=== PATIENT | female | born 1950 | race Caucasian/White ===

== ENCOUNTER 2017-08-21 02:24 | Inpatient (IN) | payer OTHER ==
[~2017-08-21] VITALS: Ht 170.2 cm; Wt 64.9 kg
[~2017-08-21 02:24] MED LIST: MAGNESIUM400 M1 PO; PREMARIN0.3 M1 PO; PROVERA2.5 MG PO; VALSARTAN-HCTZ1 EAC1 PO; VALTREX500 M1 PO; VITAMIN B-121000 MC3 PO; VITAMIN D1000 UNIT PO
[2017-08-21] MEDS ORDERED: VALSARTAN160 M1 PO (07:01)
--- NOTE | 2017-08-21 08:29 | Admission Core Measures ---
Acute Coronary Syndrome (CM) ACS Core Measures Acute Coronary Syndrome Diagnosis No Congestive Heart Failure (NEW) CHF Core Measures Congestive Heart Failure Diagnosis No Cerebrovascular Accident (NEW) CVA Core Measures CVA/TIA Diagnosis No Venous Thromboembolism VTE Core Otto (View Protocol) VTE Risk Factors Surgery No Mechanical VTE Prophylaxis d/t N/A MechProphylax Ordered No VTE Pharm Prophylaxis d/t NA PharmProphylax ordered Problem List As ranked by this Provider includes Assessment & Plan 1. Primary osteoarthritis of right hip HOME MEDS Home Med List Cholecalciferol (Vitamin D3) (Vitamin D) 1,000 UNIT TABLET 1 TAB PO DAILY SUPPLEMENT (Reported) Cyanocobalamin (Vitamin B-12) 1,000 MCG TABLET 1 TAB PO DAILY SUPPLEMENT ( Reported) Estrogens, Conjugated (Premarin) 0.3 MG TABLET 1 TAB PO DAILY HRT (Reported) Magnesium Oxide (Magnesium) (Unknown Strength) CAPSULE (Unknown Dose) PO DAILY SUPPLEMENT (Reported) Medroxyprogesterone Acetate (Provera) 2.5 MG TABLET 1 TAB PO DAILY HRT ( Reported) Valacyclovir Hydrochloride (Valtrex) 500 MG TABLET 1 TAB PO DAILY ANTIVIRAL ( Reported) Valsartan 160 MG TABLET 1 TAB PO DAILY bp (Reported) Valsartan/Hydrochlorothiazide (Valsartan-Hctz 160-12.5 MG Tab) 160 MG-12.5 MG TABLET 1 TAB PO DAILY BP (Reported)
--- NOTE | 2017-08-21 08:43 | Surg Short-stay <48hrs Dis Sum ---
Visit Information Visit Dates Admission Date: 08/21/17 Surgical Short Stay DC Summary Admission Diagnosis: right hip primary osteoarthritis Final Diagnosis: Same, s/p right total hip arthroplasty Procedure(s): right total hip arthroplasty Summary/Significant Findings: Patient was admitted to the hospital for an elective total joint replacement. Procedure was tolerated well and patient was transferred to a general surgical floor. Diet was advanced and tolerated. Physical therapy performed evaluation and treatment. At time of hospital discharge, vital signs were stable, neurovascular status was intact, and pain was controlled with the use of oral pain medications. Condition at Discharge: stable Discharge Disposition: home health services Discharge instructions provided to patient/family: Yes Post discharge follow-up plan: Follow up with Dr. Earl in 6 weeks from date of surgery. Please call his office to schedule/confirm this appointment.
[2017-08-21] MEDS ORDERED: DILAUDID2 M1 PO (11:06)
[2017-08-21] MEDS ORDERED: ASPIRIN EC325 M2 PO (11:06)
[2017-08-21] MEDS ORDERED: MIRALAX17 G1 PO (11:06)
[2017-08-21] MEDS ORDERED: PROTONIX20 M1 PO (11:06)
[2017-08-21] MEDS ORDERED: MS CONTIN15 M3 PO (11:06)
[2017-08-21] MEDS ORDERED: COLACE100 M1 PO (11:06)
--- NOTE | 2017-08-21 11:11 | Patient Discharge Instructions ---
Discharge Instructions General Discharge Information You were seen/treated for: right hip pain, osteoarthritis You had these procedures: right total hip arthroplasty Watch for these problems: Increasing pain despite the use of pain medication Increasing redness, warmth or swelling Drainage of any type from incision Inability to bear weight on operative leg Persistent nausea and vomiting Fever greater than 101.5 degrees Other wound care: Please keep wound clean and dry. No ointments or lotions of any type on or near incision. Your dressing will be changed by your nurse on the second day after your surgery. Daily dry dressing changes are recommended each day thereafter. Do not soak your wound- no tub baths/swimming. You may shower 48hr after surgery. Special Instructions: Aspirin: You are taking this medication to help prevent blood clot formation. Please take with food to protect your stomach lining. Please take as directed. Constipation: Pain medication can cause constipation. It is recommended that you take Colace and Miralax each day. Discontinue this medication if you develop loose stool or diarrhea. If you wish to continue this medication, it is available over the counter. If you are unable to move your bowels or unable to pass gas and are developing bloating, nausea, or vomiting as a result, please contact your doctor. Protonix (pantoprazole): Take this medication while on high dose aspirin to protect your stomach lining. Diet Recommended Diet: Regular Activity Activity Limited to: Weight bear as tolerated Additional ACTIVITY Info: use assistive devices as needed Acute Coronary Syndrome Inclusion Criteria At DC or during hospital stay patient has or had the following: ACS DIAGNOSIS No Discharge Core Measures Meds if any: Prescribed or Continued at Discharge Meds if any: NOT Prescribed or Continued at Discharge Congestive Heart Failure Inclusion Criteria At DC or during hospital stay patient has or had the following: CHF DIAGNOSIS No Discharge Core Measures Meds if any: Prescribed or Continued at Discharge Meds if any: NOT Prescribed or Continued at Discharge Cerebrovascular accident Inclusion Criteria At DC or during hospital stay patient has or had the following: CVA/TIA Diagnosis No Discharge Core Measures Meds if any: Prescribed or Continued at Discharge Meds if any: NOT Prescribed or Continued at Discharge Venous thromboembolism Inclusion Criteria VTE Diagnosis No VTE Type NONE VTE Confirmed by (Test) NONE Discharge Core Measures - Per Current guidelines, there needs to be overlap - treatment for the first 5 days of Warfarin therapy. - If discharged on Warfarin prior to 5 days of - overlap therapy, the patient will need to be - assessed for post discharge needs including - *Post discharge parental anticoagulation - *Warfarin and/or parental anticoagulation education - *Follow up date to check INR post discharge At least 5 days overlap therapy as Inpatient No Meds if any: Prescribed or Continued at Discharge Note: Overlap Therapy is Warfarin and Anticoagulant Meds if any: NOT Prescribed or Continued at Discharge
--- NOTE | 2017-08-21 12:22 | RADIOLOGY REPORT ---
EXAMINATION: XR HIP, RIGHT CLINICAL INFORMATION: Total hip replacement COMPARISON: None TECHNIQUE: Two views of the right hip. FINDINGS: The femoral head prosthesis is well centered within the acetabular cup. There is approximately 35 degrees of lateral version and approximately 25 degrees anteversion of the acetabular cup. The femoral stem is well-positioned in the medullary cavity of the proximal femoral diaphysis. No acute periprosthetic fracture. Postoperative soft tissue emphysema around the hip. The right pelvic bones are intact. IMPRESSION: Status post right total hip arthroplasty without complication. No acute periprosthetic fracture.
[2017-08-21 14:04] VITALS: BP 106/60
--- NOTE | 2017-08-21 14:58 | Operative Report ---
Operative/Inv Procedure Report Surgery Date: 08/21/17 Name of Procedure: Right total hip replacement Pre-Operative Diagnosis: Primary right hip DJD Post-Operative Diagnosis: Same Estimated Blood Loss: 250 Surgeon/Farm Technician: Mady TERRELL,Narendra Eller Anesthesia: block Operative/Procedure Note Note: Description of Procedure: The patient was taken to the operating room and positively identified. After induction of spinal anesthesia and administration of appropriate pre-operative antibiotics, the patient was positioned supine on the operating room table and all bony prominences were well padded. After performing a surgical timeout, the right lower extremity was prepped and draped in the usual sterile fashion. A direct anterior approach was made to the right hip. The incision was carried sharply through superficial soft tissues to the level of the fascia. Meticulous hemostasis was maintained with Bovie electocautery. The fascia over the tensor fascia any muscle was opened sharply and the interval between the TFL and the sartorius was entered bluntly taking care to stay lateral to the lateral femoral cutaneous nerve. Retractors were placed around the femoral neck and the pericapsular fat was identified. The ascending branches of the lateral femoral circumflex vessels were identified and carefully coagulated. The pericapsular fat and anterior capsule were then resected. A napkin ring osteotomy was performed and the femoral head was removed without difficulty. Attention was then turned to the acetabulum. After appropriate placement of retractors, the acetabulum was exposed. Soft tissue was cleaned from the acetabular margin and notch. Overhanging osteophytes were removed and the teardrop was exposed. The acetabulum was then sequentially reamed to accept a 56 mm Haider Tritanium hemispherical solid shell. This was impacted into place in the appropriate position and fitted with a 36 mm Trident X3 zero degree polyethylene insert. Attention was then turned to the femur. After performing the appropriate ligament releases, the proximal femur was exposed. It was then sequentially broached to accept a size #4 [place] Accolade 2 stem. This was trialed for leg length and stability. The trial component was removed and the final component was impacted into place. The trunnion was carefully cleaned and fit with a 36 mm, -2.5 Biolox delta ceramic femoral head. The hip was reduced and put through a full range of motion and found to be stable. The articular space was then irrigated with sterile saline. The periarticular soft tissues were infilitrated with Marcaine. The fascial layer was closed with interrupted #1 vicryl suture and the skin was re-approximated with interrupted 2 -0 vicryl. The skin was closed with a running 3-0 V-Lock suture. Steri-strips and a sterile dressing were applied. The patient was awakened and taken to the recovery room in satisfactory condition.
--- NOTE | 2017-08-21 15:00 | PN- Orthopedic ---
Subjective Subjective: Post-op Check Pt sitting in chair, tolerating reg diet. Denies N/V. Pt denies pain. Ambulated with PT and was cleared for DC to home. Voided pt would like to go home this afternoon Objective Vital Signs and I&Os Vital Signs Date Time Temp Pulse Resp B/P B/P Pulse O2 O2 Flow FiO2 Mean Ox Delivery Rate 08/21 1404 97.7 63 16 106/60 97 Room Air Intake & Output 08/21 1600 08/21 0800 08/21 0000 08/20 1600 08/20 0800 08/20 0000 Intake Total 240 Output Total 300 Balance -60 Intake, Oral 240 Output, Urine 300 Patient 143 lb Weight Weight Reported by Patient Measurement Method Physical Exam: gen-NAD ext- Right hip soft, appropriately tender. Dressing clean and dry. distal sensory and motor function intact. 2+PT pulse. Assessment/Plan Assessment/Plan 67yo F SP R SAMMY POD0. stable PLan for DC home today, cleared by PT ASA for DVT prophylaxis pain management WBAT Reg diet encourage ambulation and IS PPI for GI protection stool softeners reviewed DC instructions with pt and her spouse Core Measures Venous Thromboembolism VTE Risk Factors Surgery No Mechanical VTE Prophylaxis d/t N/A MechProphylax Ordered No VTE Pharm Prophylaxis d/t NA PharmProphylax ordered
== END 2017-08-21 16:30 | disposition home health service (06) | DRG 470 ==
LOC: SDA 02:24 → STS 07:00 → EDSTATUS 07:00 → SDA 07:00 → ENRESERV 12:41 → ENTRNSPT 13:06 → EDTRNSPT 13:27 → EDTRNSPTSTS 13:27 → 2NA 13:36 → CMPTRNSPT 14:05 → 2NA 16:30 → ENTRNSPT 16:32 → EDTRNSPTSTS 16:47 → EDTRNSPT 16:47 → CMPTRNSPT 16:57
PROC: 0SR90JA Replacement of Right Hip Joint with Synthetic Substitute, Uncemented, Open Approach (ICD-10-PCS; principal; 2017-08-21)
DX: M16.11 Unilateral primary osteoarthritis, right hip (principal); I10 Essential (primary) hypertension
CPT/HCPCS: 2NAP; 73502-RT; 97116-GO; 97161-GP; J0690; J0735; J2405; J2550; J3490; J7042